=== PATIENT | male | born 1975 | race Caucasian/White ===

== ENCOUNTER 2019-09-19 22:05 | Outpatient (REF) | payer OTHER, SELFPAY ==
[2019-09-19 22:40] LABS: Calculated LDL 122 mg/dL (<100); Cholesterol 213 mg/dL (<200); HDL Cholesterol 46 mg/dL (40-60); Triglyceride 229 mg/dL (<150)
== END 2019-09-19 22:25 ==
LOC: NCHCN 22:05
PROVIDERS: Visit Provider Registered Nurse
DX: E78.5 Hyperlipidemia, unspecified (principal)
CPT/HCPCS: 80061

== ENCOUNTER 2022-09-01 15:22 | Outpatient (REF) | payer OTHER, SELFPAY ==
[2022-09-01 21:27] LABS: ALT 32 U/L (16-63); AST 25 U/L (15-37); Albumin 3.8 g/dL (3.4-5.0); Alkaline Phosphatase 71 U/L (46-116); BUN 16 mg/dL (7-18); Bilirubin, Total 0.3 mg/dL (0.2-1.0); Calcium 8.6 mg/dL (8.5-10.1); Calculated LDL 129 mg/dL (<100); Chloride 102 mmol/L (98-107); Cholesterol 234 mg/dL (<200); Estimated GFR 92.26 (mL/min/1.73m2); Glucose 87 mg/dL (74-106); HDL Cholesterol 54 mg/dL (40-60); Potassium 4.1 mmol/L (3.5-5.1); Sodium 139 mmol/L (136-145); Total Protein 7.6 g/dL (6.4-8.2); Triglyceride 258 mg/dL (<150)
[2022-09-01 21:57] LABS: Hemoglobin A1C 5.8 % (<5.7)
== END 2022-09-01 15:23 | disposition home or self-care (01) ==
LOC: NCHCN 15:22
PROVIDERS: PCP Registered Nurse; Visit Provider Registered Nurse
DX: Z00.00 Encounter for general adult medical examination without abnormal findings (principal); E66.9 Obesity, unspecified; Z13.1 Encounter for screening for diabetes mellitus; Z13.220 Encounter for screening for lipoid disorders
CPT/HCPCS: 80053; 80061; 83036

== ENCOUNTER 2025-01-23 09:48 | Outpatient (REF) | payer OTHER, SELFPAY ==
[2025-01-23 19:09] LABS: Cholesterol 214 mg/dL (<200); HDL Cholesterol 61 mg/dL (>40)
== END 2025-01-23 09:49 | disposition home or self-care (01) ==
LOC: NCHCN 09:48
PROVIDERS: PCP Registered Nurse; Visit Provider Family Medicine
DX: R53.83 Other fatigue (principal)
CPT/HCPCS: 80061